=== PATIENT | female | born 1990 | race Two or more races ===

== ENCOUNTER 2017-11-04 02:19 | Emergency (ER) | payer OTHER ==
[2017-11-04 04:49] LABS: URINE BLOOD (Dip) POC Trace-intact (NEGATIVE); URINE GLUCOSE (Dip) POC Negative (NEGATIVE); URINE KETONES (Dip) POC Negative (NEGATIVE); URINE LEUKOCYTE EST (Dip) POC Negative (NEGATIVE); URINE NITRITE (Dip) POC Negative (NEGATIVE); URINE TOTAL PROTEIN POC Negative (NEGATIVE)
[2017-11-04] MEDS: ONDANSETRON 4 MG INJ IV (05:03)
[2017-11-04] MEDS: morphine 2 MG INJ IV (05:03)
[2017-11-04] MEDS: SOD CHLORIDE 0.9% 1,000 ML IV (05:04)
[2017-11-04] MEDS: KETOROLAC 30 MG INJ IV (06:07)
== END 2017-11-04 06:25 | disposition home or self-care (01) ==
LOC: E/R 02:19
DX: R10.2 Pelvic and perineal pain (principal); R40.2142 Coma scale, eyes open, spontaneous, at arrival to emergency department; R40.2252 Coma scale, best verbal response, oriented, at arrival to emergency department; R40.2362 Coma scale, best motor response, obeys commands, at arrival to emergency department
CPT/HCPCS: 76856; 81003; 96374; 96375; 99285-25

== ENCOUNTER 2018-05-21 21:10 | Emergency (ER) | payer OTHER ==
[2018-05-21 22:24] LABS: ADD MAN DIFF? NO
[2018-05-21 22:29] LABS: BASOPHIL # 0.1 10^3/ul (0.0-0.1); BASOPHILS % 0.6 % (0.0-2.0); EOSINOPHILS # 0.1 10^3/ul (0.0-0.5); EOSINOPHILS % 1.7 % (0.0-7.0); HEMATOCRIT 34.5 % (37.0-47.0); HEMOGLOBIN 11.2 g/dl (12.0-16.0); LYMPHOCYTES # 2.2 10^3/ul (0.8-2.9); LYMPHOCYTES % 27.3 % (15.0-51.0); MEAN CORPUSCULAR HEMOGLOBIN 27.3 pg (29.0-33.0); MEAN CORPUSCULAR HGB CONC 32.5 g/dl (32.0-37.0); MEAN CORPUSCULAR VOLUME 84.1 fl (82.0-101.0); MEAN PLATELET VOLUME 11.8 fl (7.4-10.4); MONOCYTE # 0.6 10^3/ul (0.3-0.9); MONOCYTES % 6.9 % (0.0-11.0); NEUTROPHIL # 5.1 10^3/ul (1.6-7.5); NEUTROPHILS % 63.3 % (39.0-77.0); PLATELET COUNT 182 10^3/UL (140-415); RED CELL DISTRIBUTION WIDTH 13.8 % (11.5-14.5)
[2018-05-21 22:29] LABS: WHITE BLOOD COUNT 8.1 10^3/ul (4.8-10.8)
[2018-05-21 22:33] LABS: ADD UMIC NO; UR ASCORBIC ACID 40 mg/dL (NEGATIVE); UR BILIRUBIN (Dip) NEGATIVE (NEGATIVE); UR BLOOD (Dip) NEGATIVE (NEGATIVE); UR CLARITY CLEAR (CLEAR); UR COLOR YELLOW (YELLOW); UR GLUCOSE (Dip) NEGATIVE (NEGATIVE); UR KETONES (Dip) NEGATIVE (NEGATIVE); UR LEUKOCYTE ESTERASE (Dip) NEGATIVE Leu/ul (NEGATIVE); UR NITRITE (Dip) NEGATIVE (NEGATIVE); UR TOTAL PROTEIN (Dip) NEGATIVE (NEGATIVE); UR UROBILINOGEN (Dip) 2+ mg/dL (NEGATIVE)
== END 2018-05-22 00:55 | disposition home or self-care (01) ==
LOC: FTE 05-22 00:55
DX: O20.9 Hemorrhage in early pregnancy, unspecified (principal); Z3A.01 Less than 8 weeks gestation of pregnancy
CPT/HCPCS: 76801; 76817; 81003; 84702; 85025; 86900; 86901; 99284-25

== ENCOUNTER 2018-05-24 18:44 | Inpatient (IN) | payer OTHER ==
[2018-05-24 23:18] LABS: ADD MAN DIFF? NO
[2018-05-24] MEDS: SOD CHLORIDE 0.9% 500 ML IV (23:18)
[2018-05-24 23:24] LABS: BASOPHILS % 0.4 % (0.0-2.0); EOSINOPHILS # 0.1 10^3/ul (0.0-0.5); EOSINOPHILS % 1.7 % (0.0-7.0); HEMATOCRIT 33.8 % (37.0-47.0); HEMOGLOBIN 10.9 g/dl (12.0-16.0); LYMPHOCYTES # 2.2 10^3/ul (0.8-2.9); LYMPHOCYTES % 31.1 % (15.0-51.0); MEAN CORPUSCULAR HEMOGLOBIN 27.3 pg (29.0-33.0); MEAN CORPUSCULAR HGB CONC 32.2 g/dl (32.0-37.0); MEAN CORPUSCULAR VOLUME 84.5 fl (82.0-101.0); MEAN PLATELET VOLUME 12.1 fl (7.4-10.4); MONOCYTE # 0.5 10^3/ul (0.3-0.9); MONOCYTES % 7.2 % (0.0-11.0); NEUTROPHIL # 4.2 10^3/ul (1.6-7.5); NEUTROPHILS % 59.2 % (39.0-77.0); PLATELET COUNT 189 10^3/UL (140-415); RED CELL DISTRIBUTION WIDTH 13.7 % (11.5-14.5)
[2018-05-24 23:24] LABS: WHITE BLOOD COUNT 7.1 10^3/ul (4.8-10.8)
[2018-05-24 23:44] LABS: ANION GAP 13 (8-16); BLOOD UREA NITROGEN 9 mg/dl (7-20); CALCIUM 9.2 mg/dl (8.4-10.2); CARBON DIOXIDE 24 mmol/L (21-31); CHLORIDE 106 mmol/L (97-110); CREATININE 0.64 mg/dl (0.44-1.00); GLUCOSE 92 mg/dl (70-220); INR 1.03; PARTIAL THROMBOPLASTIN TIME 28.2 Sec (23.0-35.0); PROTIME 13.6 Sec (11.9-14.9); PT RATIO 1.1; SODIUM 139 mmol/L (135-144)
[2018-05-25] MEDS: LACTATED RINGER'S 1,000 ML IV ×3 (02:45→18:02)
[2018-05-25] MEDS: DEXTROSE 5%-LR 1,000 ML IV ×2 (03:45→17:22)
[2018-05-25] MEDS: CEFAZOLIN 2 GM/50 ML (PMX) 50 ML IV (03:45)
[2018-05-25 03:51] LABS: ADD MAN DIFF? NO
[2018-05-25 04:11] LABS: WHITE BLOOD COUNT 7.3 10^3/ul (4.8-10.8)
[2018-05-25 04:11] LABS: BASOPHILS % 0.6 % (0.0-2.0); EOSINOPHILS # 0.1 10^3/ul (0.0-0.5); EOSINOPHILS % 1.5 % (0.0-7.0); HEMATOCRIT 32.6 % (37.0-47.0); HEMOGLOBIN 10.5 g/dl (12.0-16.0); LYMPHOCYTES # 2.3 10^3/ul (0.8-2.9); LYMPHOCYTES % 31.3 % (15.0-51.0); MEAN CORPUSCULAR HEMOGLOBIN 27.3 pg (29.0-33.0); MEAN CORPUSCULAR HGB CONC 32.2 g/dl (32.0-37.0); MEAN CORPUSCULAR VOLUME 84.9 fl (82.0-101.0); MEAN PLATELET VOLUME 12.4 fl (7.4-10.4); MONOCYTE # 0.5 10^3/ul (0.3-0.9); MONOCYTES % 6.2 % (0.0-11.0); NEUTROPHIL # 4.4 10^3/ul (1.6-7.5); NEUTROPHILS % 60.1 % (39.0-77.0); PLATELET COUNT 161 10^3/UL (140-415); RED BLOOD COUNT 3.84 10^6/ul (4.20-5.40); RED CELL DISTRIBUTION WIDTH 13.7 % (11.5-14.5)
[2018-05-25] MEDS ORDERED: HYDROmorphONE 1 MG/5 ML IV SYRINGE IV (10:00)
[2018-05-25] MEDS ORDERED: DIPHENHYDRAMINE 50 MG INJ IV (10:00)
[2018-05-25] MEDS ORDERED: GLYCOPYRROLATE 0.4 MG INJ (10:05)
[2018-05-25] MEDS ORDERED: ROCURONIUM 50 MG INJ (10:05)
[2018-05-25] MEDS ORDERED: PROPOFOL 20 ML (10:05)
[2018-05-25] MEDS ORDERED: MIDAZOLAM 1 MG/ML 2 ML INJ (10:05)
[2018-05-25] MEDS ORDERED: NEOSTIGMINE 3 MG/3 ML SYRINGE (10:05)
[2018-05-25] MEDS ORDERED: ONDANSETRON 4 MG INJ (10:06)
[2018-05-25] MEDS ORDERED: METOCLOPRAMIDE 10 MG INJ (10:06)
[2018-05-25] MEDS ORDERED: ROPIVACAINE 0.5 % 30 ML VIAL (10:06)
[2018-05-25] MEDS ORDERED: KETOROLAC 30 MG INJ (10:06)
[2018-05-25] MEDS ORDERED: FENTAnyl 50 MCG/ML VIAL ×2 (10:33→12:12)
[2018-05-25] MEDS ORDERED: CEFAZOLIN 1 GM INJ (10:37)
[2018-05-25] MEDS: BUPIVACAINE 0.5%/EPI (SDV) 30 ML INJ (10:46)
[2018-05-25] MEDS ORDERED: SILVER NITRATE SWAB (12:38)
[2018-05-25] MEDS: HYDROmorphONE 1 MG/5 ML IV SYRINGE IV ×2 (13:09→13:17)
[2018-05-25] MEDS: MEPERIDINE 25 MG INJ IV (13:09)
[2018-05-25] MEDS: ONDANSETRON 4 MG INJ IV (13:09)
[2018-05-25] MEDS ORDERED: HYDROCODONE/APAP (7.5/325) TAB PO (15:00)
[2018-05-25] MEDS ORDERED: IBUPROFEN 600 MG TAB PO (15:00)
[2018-05-25] MEDS ORDERED: ONDANSETRON 4 MG INJ IV (16:30)
== END 2018-05-25 22:35 | disposition home or self-care (01) | DRG 777 ==
LOC: FTE 18:44 → MS1 05-25 02:04
PROVIDERS: Obstetrics & Gynecology Obstetrics
PROC: 10D27ZZ Extraction of Products of Conception, Ectopic, Via Natural or Artificial Opening (ICD-10-PCS; principal; 2018-05-25 10:14)
DX: O00.101 Right tubal pregnancy without intrauterine pregnancy (principal); N73.6 Female pelvic peritoneal adhesions (postinfective)
CPT/HCPCS: 36415; 76801; 76817; 80048; 84702; 85025; 85610; 85730; 86850; 86900; 86901; 87081; 88305; 96360; 96361; 99285-25